=== PATIENT | male | born 1980 | race Caucasian/White ===

== ENCOUNTER 2022-12-31 09:55 | Outpatient (CLI) | payer OTHER, SELFPAY ==
--- NOTE | ~2022-12-31 | XR_ITS ---
Supine views of the abdomen Clinical history: Abdominal pain Findings: Bowel gas pattern is nonspecific. Moderate stool suggests constipation. No evidence for obs truction or free air. No abnormal mass lesion or calcification is seen. Osseous structures are intact . Impression: Moderate stool suggests constipation. Reviewed, dictated and finalized at [facility]. Impression: Moderate stool suggests constipation.
== END 2022-12-31 09:56 | disposition home or self-care (01) ==
PROVIDERS: PCP Physician Assistant; Visit Provider Nurse Practitioner
DX: K92.89 Other specified diseases of the digestive system (principal)
CPT/HCPCS: 74018

== ENCOUNTER 2023-02-20 00:09 | Day surgery (SDC) | payer OTHER, SELFPAY ==
[2023-02-10 14:16] VITALS: BMI 34.4
[2023-02-20 09:41] VITALS: BP 127/83; PULSE 77; RESP 22; TEMP 36.8; O2SAT 100; BMI 34.7
--- NOTE | 2023-02-20 09:58 | WPDANESEPPF ---
Anes - Initial Pre Proc Eval Procedure: Operation Date: 02/20/23 10:45 Proposed Procedures p Esophagogastroduodenoscopy & Colonoscopy - Arsalan Rouse MD Date/Time: 02/20/23 09:58 Surgeon: Arsalan Rouse MD Pre Op Diagnosis: gas, bloating belching Patient Data Age: 43 Gender: M Height: 1.63 m Weight: 91.9 kg Last Vital Signs Temp 98.3 F 02/20/23 09:41 Pulse 77 02/20/23 09:41 Resp 22 H 02/20/23 09:41 BP 127/83 02/20/23 09:41 Pulse Ox 100 02/20/23 09:41 O2 Del Method Room Air 02/20/23 09:41 Allergies Allergy/AdvReac Type Severity Reaction Status Date / Time No Known Allergies Allergy Verified 02/10/23 14:14 Home Medications Medication Instructions Recorded Confirmed Type rifaximin 550 mg tablet (Xifaxan) 550 mg PO TID #42 tabs 12/31/22 02/10/23 Rx Adults Multivitamin 1 tab-cap BYMOUTH DAILY 02/10/23 02/10/23 History Patient hx anesthesia problems: none Family hx anesthesia problems: none Results Review: All pre-operative results and documents have been reviewed as part of the pre-operative evaluation. FORMERLY [facility] Past Medical History Medical History (Updated 12/31/22 @ 09:28 by Evita Lee APRN) Gas bloat syndrome IBS (irritable bowel syndrome) Obesity Social History Social History Smoking status: Never smoker Alcohol intake: current Alcohol use details: rare Substance use: never Substance use type: does not use Living arrangements: with family Spiritual care concerns: No Anes - Eval Final PreProcedure Day of Procedure 02/20/23 09:58 Patient weight: obese Heart: regular rate and rhythm Lungs: clear to auscultation Airway: Mallampati scale class II Neurological: alert and oriented Last oral intake: >/= 8 hours ASA classification: II Emergent: no Anesthetic plan: proceed Anesthesia type and monitoring: general GIVS and standard monitoring Results Review: All pre-operative results and documents have been reviewed as part of the pre-operative evaluation. Informed Consent: The patient's anesthetic plan and its attendant risks and benefits were discussed with the patient/family/POA. Questions were solicited and answers provided to the satisfaction of the patient/family/POA.
--- NOTE | 2023-02-20 10:02 | P.HP_ITS ---
History of Present Illness History of Present Illness Consent: Risks, benefits, and alternatives have been discussed and questions answered. Patient agrees to proceed with procedure. Chief complaint: gas, bloating belching Narrative: John Clayton Jr. is a 43 year old male Presents for colonoscopy an EGD because of excessive bloating, gas, belching. Patient has been on empiric trial of Xifaxan with no change in symptoms. Patient presents today for GI endoscopy to exclude organic pathology. He denies any bleeding, he has had no weight loss. Family history noncontributory. Review of Systems Review of Systems: Review of systems noncontributory. [facility] Past Medical History Medical History (Updated 12/31/22 @ 09:28 by Evita Lee APRN) Gas bloat syndrome IBS (irritable bowel syndrome) Obesity Social History Social History Smoking status: Never smoker Alcohol intake: current Alcohol use details: rare Substance use: never Substance use type: does not use Living arrangements: with family Spiritual care concerns: No Meds Home Medications and Allergies Home Medications Medication Instructions Recorded Confirmed Type rifaximin 550 mg tablet (Xifaxan) 550 mg PO TID #42 tabs 12/31/22 02/10/23 Rx Adults Multivitamin 1 tab-cap BYMOUTH DAILY 02/10/23 02/10/23 History Allergies Allergy/AdvReac Type Severity Reaction Status Date / Time No Known Allergies Allergy Verified 02/10/23 14:14 Vital Signs Vital Signs - 24 hr 02/20/23 09:41 Temperature 98.3 F Pulse Rate 77 Respiratory Rate 22 H Blood Pressure 127/83 Pulse Oximetry 100 Oxygen Delivery Room Air Exam Narrative: Physical exam reveals patient to be alert. Vital signs stable. HEENT exam is unremarkable. Patient is anicteric. Lungs are clear to auscultation and percussion. Heart is without murmur or extra sounds. Abdomen bowel sounds are present soft nontender with no organomegaly. Digital external rectal exam is normal. Assessment and Plan Assessment and plan (1) Gas bloat syndrome: Code(s): K92.89 - Other specified diseases of the digestive system Status: Acute Assessment and Plan: Patient complains of excess gas, bloating and belching. I have advised patient keep a food diarrhea is her may be a food ingredients. Patient should try avoidance of milk for 1 week. Consider avoiding artificial sweeteners or other potential offending agents. Trial of probiotics may be of some benefit. Currently on a trial of Xifaxan. Colonoscopy EGD and colonoscopy are requested will be performed today.
[2023-02-20] MEDS: LACTATED RINGERS 1,000 ML 150 ML IV CONT (10:21)
--- NOTE | 2023-02-20 10:49 | SUR.OPER ---
EGD start 1049 end 1051, Colonoscopy start 1056.
[2023-02-20 11:14] VITALS: BP 118/72; PULSE 67; RESP 16; O2SAT 100
[2023-02-20 11:24] VITALS: BP 124/78; PULSE 58; RESP 16; O2SAT 100
[2023-02-20 11:34] VITALS: BP 123/80; PULSE 58; RESP 16; O2SAT 100
== END 2023-02-20 11:45 | disposition home or self-care (01) ==
PROVIDERS: PCP Physician Assistant; Visit Provider Internal Medicine Gastroenterology
PROC: 0DJ08ZZ Inspection of Upper Intestinal Tract, Via Natural or Artificial Opening Endoscopic (ICD-10-PCS; CPT 43235; principal; 2023-02-20 10:45)
DX: K57.30 Diverticulosis of large intestine without perforation or abscess without bleeding (principal); K64.8 Other hemorrhoids; R14.0 Abdominal distension (gaseous); R14.2 Eructation; R14.3 Flatulence; K58.9 Irritable bowel syndrome, unspecified; E66.9 Obesity, unspecified; Z68.34 Body mass index [BMI] 34.0-34.9, adult
CPT/HCPCS: 45378; 43239; 87081; J2704; J7120

== ENCOUNTER 2025-04-18 11:23 | Emergency (ER) | payer OTHER, SELFPAY ==
[2025-04-18 11:27] VITALS: BP 127/88; PULSE 57; RESP 16; TEMP 37.1; O2SAT 100
--- NOTE | 2025-04-18 14:23 | ED.SKABFB ---
HPI - Skin/Abscess/Foreign Bdy General Chief complaint: Skin/Abscess/Foreign Body Stated complaint: Skin Irritation Time Seen by Provider: 04/18/25 11:41 Source: patient and RN notes reviewed Mode of arrival: ambulatory Limitations: no limitations History of Present Illness HPI narrative: Patient presents today complaining of several crusting lesions to the right nose, right upper arm, right hand and bilateral thighs, that have been present for more than 4 days. Lesions started on the right upper arm that spread from there. Patient was initially seen at a different Urgent Care 4 days ago and diagnosed with a bacterial infection and started on Keflex. At that time he also had a, ?low-grade fever ? when he was returning a work trip and was also tested for influenza A and COVID, both of which were negative. Patient states that after being on the Keflex for several days now the crusting lesions have improved. Related Data Home Medications ?Medication ?Instructions ?Recorded ?Confirmed ?Last Taken ?Type Adults Multivitamin 1 tab-cap BYMOUTH DAILY 02/10/23 02/10/23 Unknown History cephalexin 500 mg capsule mg 04/18/25 Unknown History Allergies Allergy/AdvReac Type Severity Reaction Status Date / Time No Known Allergies Allergy Verified 04/18/25 11:28 [facility] Past Medical History Medical History (Updated 04/18/25 @ 12:04 by Lexie Rasmussen, [facility]) Obesity IBS (irritable bowel syndrome) Gas bloat syndrome Social History Social History Smoking status: Never smoker Alcohol intake: current Alcohol use details: rare Substance use: never Substance use type: does not use Living arrangements: with family Spiritual care concerns: No Comments At time of signature, I have reviewed and agree with nursing past medical, surgical, social and family history unless otherwise noted. Please see nursing chart for further information. There is no relevant family history pertinent to the presenting complaint Exam Narrative: GENERAL: Well-appearing, well-nourished, and in no acute distress. HEAD: Normocephalic, atraumatic. EYES: EOMI. No redness or drainage. Conjunctivae normal. ENT: Mucous membranes pink and moist. NECK: Normal AROM. CHEST: No respiratory distress. Clear to auscultation. HEART: Regular rate and rhythm. No murmur appreciated. EXTREMITIES: Normal range of motion. No edema. SKIN: Warm, dry. Capillary refill normal. Normal skin turgor. Tiny crusted lesions to the right nasal bridge, posterior right upper arm, bilateral thighs on mildly erythematous bases. No drainage or fluctuance noted. No induration. NEURO: No focal deficits. Alert and oriented x3. Gait steady. PSYCH: Normal affect. No signs of depression or anxiety. Course Course Level of Care: Express Care Visit Vital Signs Vital signs: Vital Signs Temperature 98.7 F 04/18/25 11:27 Pulse Rate 57 L 04/18/25 11:27 Respiratory Rate 16 04/18/25 11:27 Blood Pressure 127/88 04/18/25 11:27 Pulse Oximetry 100 04/18/25 11:27 Oxygen Delivery Room Air 04/18/25 11:27 Temperature 98.7 F 04/18/25 11:27 Pulse Rate 57 L 04/18/25 11:27 Respiratory Rate 16 04/18/25 11:27 Blood Pressure 127/88 04/18/25 11:27 Pulse Oximetry 100 04/18/25 11:27 Oxygen Delivery Room Air 04/18/25 11:27 Reviewed MDM - Skin/Abscess/Foreign Bdy MDM Narrative Medical decision making narrative: 45-year-old male patient presents today complaining of crusting lesions to the face, right arm and hand and bilateral thighs and is currently taking Keflex for presumed impetigo and is on day 3, prescribed by a different Urgent Care. Patient states these lesions have been improving. They seem dry without obvious abscess or cellulitis. Recommend adding topical mupirocin to ensure continuing healing. Patient agrees with plan. Vital signs stable. Anticipatory guidance given. Differential Diagnosis Differential diagnosis: Likely abscess of skin or subcutaneous tissue, cellulitis, eczema, insect bites, impetigo and contact dermatitis Critical Care Time Critical Care Time Critical Care Time: No Discharge Plan Discharge Clinical Impression: Impetigo Patient Disposition: Home Condition: Stable Instructions: Impetigo (ED) Additional Instructions: Please continue your Keflex as previously prescribed. Use the mupirocin as directed. As discussed, if you develop worsening symptoms such as body aches persist or worsen, you develop a new fever greater than 100.3, dizziness lightheadedness, sweats or chills, chest pain, shortness of breath, abdominal pain, please go to the ER immediately for further evaluation or treatment. Your blood pressure was elevated above 120/80 today at Urgent Care. This puts you above the threshold for follow up. Please schedule a followup visit with your personal physician as soon as possible, for further evaluation and treatment. Even blood pressure exceeding 120/80 may indicate pre-hypertension. Patient Language: Malay Prescriptions: New mupirocin 2 % ointment 1 applic topical BID 7 Days Qty: 22 0RF No Action cephalexin 500 mg capsule Adults Multivitamin 1 tab-cap BYMOUTH DAILY Follow-up/Referrals: PHYSICIAN,[employer] [Primary Care Provider] - Time of Disposition: 12:05
== END 2025-04-18 12:07 | disposition home or self-care (01) ==
PROVIDERS: Emergency Provider Nurse Practitioner
DX: L01.00 Impetigo, unspecified (principal); E66.9 Obesity, unspecified; Z68.35 Body mass index [BMI] 35.0-35.9, adult
CPT/HCPCS: 99213; G0463

== ENCOUNTER 2025-10-11 09:17 | Emergency (ER) | payer OTHER, SELFPAY ==
[2025-10-11 09:33] VITALS: BP 140/97; PULSE 70; RESP 16; TEMP 36.8; O2SAT 100
[2025-10-11 09:44] LABS: EDSTREPNEGPOS1 Negative (Negative)
--- NOTE | 2025-10-11 10:01 | ED.URI ---
HPI - URI/Sore Throat General Chief Complaint: Upper Respiratory Infection Stated Complaint: Sore Throat Time Seen by Provider: 10/11/25 09:50 Source: patient and RN notes reviewed Mode of arrival: ambulatory Limitations: no limitations History of Present Illness HPI Narrative: 45-year-old male patient presents to the [facility] complaining sore throat for 3 days. Patient also reports nasal drainage. Patient denies any other upper respiratory symptoms, fevers, body aches, chills, chest pain, breathing problems, any other symptoms. Patient check Motrin to help with the symptoms. Related Data Home Medications ?Medication ?Instructions ?Recorded ?Confirmed ?Last Taken ?Type Adults Multivitamin 1 tab-cap BYMOUTH DAILY 02/10/23 02/10/23 Unknown History Allergies Allergy/AdvReac Type Severity Reaction Status Date / Time No Known Allergies Allergy Verified 10/11/25 09:28 Review of Systems Review of Systems: CONSTITUTIONAL: Denies fever, chills, or sweats. EYES: Denies visual changes, redness, or discharge. ENT: Denies rhinorrhea, congestion, or otalgia. Positive for sore throat CARDIOVASCULAR: Denies chest pain, palpitations, or edema. RESPIRATORY: Denies cough or dyspnea. GASTROINTESTINAL: Denies abdominal pain, nausea, vomiting, or diarrhea. GENITOURINARY: Denies dysuria or hematuria. SKIN: Denies rash or itching. MUSCULOSKELETAL: Denies back pain, joint pain, or myalgia. NEUROLOGIC: Denies headache, numbness, or weakness. PSYCHIATRIC: Denies anxiety or depression. All other systems reviewed are negative, except as documented in HPI. PMFSH Past Medical History Medical History Obesity IBS (irritable bowel syndrome) Gas bloat syndrome Social History Social History Smoking status: Never smoker Alcohol intake: current Alcohol use details: rare Substance use: never Substance use type: does not use Living arrangements: with family Spiritual care concerns: No Comments At the time of my signature, I reviewed and agree with the nursing past medical, surgical, social, and family history. There is no relevant family history pertinent to the patient complaint. Exam Narrative: GENERAL: This is a well-nourished, well-developed adult, in no apparent distress. They are non ill-appearing, nontoxic appearing. HEAD: normocephalic, atraumatic. EYES: Sclera clear/white. Conjunctiva normal. Vision is grossly intact. Extraocular movements intact EARS: External ears normal, auditory canals clear and without drainage, TMs normal without perforation. Hearing grossly intact. NOSE: External nose normal with no obvious nasal discharge, nasal turbinates without redness, no rhinorrhea. THROAT: Mucous membranes moist, posterior pharynx erythematous with PND present. Uvula midline. NECK: Neck supple, mild cervical lymphadenopathy, no masses or thyromegaly. CARDIOVASCULAR: Regular rate and rhythm without murmurs, gallops, or rubs. RESPIRATORY: Clear to auscultation. Breath sounds equal bilaterally. No wheezes, rales, or rhonchi. SKIN: warm, Dry, intact with no suspicious lesions or rash, good texture and turgor. NEURO: awake, alert, and oriented to person, place and time. There were no obvious focal neurologic abnormalities. EXTREMITIES: No joint tenderness, effusion, or edema noted. BACK: Nontender without deformity. Course Course Level of Care: Express Care Visit Vital Signs Vital signs: Vital Signs Temperature 98.3 F 10/11/25 09:33 Pulse Rate 70 10/11/25 09:33 Respiratory Rate 16 10/11/25 09:33 Blood Pressure 140/97 H 10/11/25 09:33 Pulse Oximetry 100 10/11/25 09:33 Temperature 98.3 F 10/11/25 09:33 Pulse Rate 70 10/11/25 09:33 Respiratory Rate 16 10/11/25 09:33 Blood Pressure 140/97 H 10/11/25 09:33 Pulse Oximetry 100 10/11/25 09:33 [facility] Narrative Medical decision making narrative: Rapid strep negative. A throat culture is pending. Symptoms likely viral etiology. Discussed supportive care. Discussed physical exam findings. Advised supportive measures and signs/symptoms to go to the ER. Pt is appropriate for outpt treatment and f/u. Differential Diagnosis Differential Diagnosis: Differential diagnostic considerations for upper respiratory infection include upper respiratory infection, croup, otitis media, sinusitis, viral infection, bronchitis, influenza, pharyngitis, strep, uvulitis. Lab Data [facility] Lab Attestation statement: I personally reviewed the patient's lab results. Labs: Lab Results 12/30/25 Range/Units 09:42 POC Grp A Strep Screen Negative (Negative) Critical Care Time Critical Care Time Critical Care Time: No Discharge Plan Discharge Clinical Impression: Pharyngitis Qualifiers: Pharyngitis/tonsillitis etiology: unspecified etiology Qualified Code(s): J02.9 - Acute pharyngitis, unspecified Patient Disposition: Home Condition: Stable Instructions: Antibiotic Form, Pharyngitis (ED) Additional Instructions: Your rapid strep swab was negative today at [facility]. You will be notified in a few days if the culture comes back positive for strep, and appropriate antibiotics will be called in for you at that time. Your symptoms are likely due to a viral illness, which is not treated with antibiotics. Viral symptoms can be present for up to 7-10 days. Take Tylenol or Motrin as needed for fever or pain. Follow instructions on the bottle Rest and stay hydrated. Follow up with your PCP in 3-5 days if symptoms are not improving. Go to the ER immediately if you developed chest pain, vomiting, difficulty breathing or swallowing, or any serious concerns. Patient Language: Armenian Prescriptions: No Action Adults Multivitamin 1 tab-cap BYMOUTH DAILY Follow-up/Referrals: Aubrie,Lexie Hameed APRN [Primary Care Provider, Unknown] Time of Disposition: 10:01
== END 2025-10-11 10:04 | disposition home or self-care (01) ==
PROVIDERS: PCP Nurse Practitioner Family
DX: J02.9 Acute pharyngitis, unspecified (principal)
CPT/HCPCS: 87081; 87880; 99213; G0463